=== PATIENT | male | born 1960 | race Caucasian/White ===

== ENCOUNTER 2016-08-02 15:07 | Emergency (ER) | payer OTHER ==
[~2016-08-02] VITALS: Ht 182.9 cm; Wt 100.0 kg
[~2016-08-02 15:07] MED LIST: ALBU0.086 INH; ASPI81TA82 PO; MEDR4PAK3 PO; TAB-TAB; ZITH250T PO
[2016-08-02 15:44] VITALS: PULSE 64; RESP 14; TEMP 98; O2SAT 99
[2016-08-02 15:52] VITALS: BP 138/69; PULSE 68; RESP 18; O2SAT 100
[2016-08-02] MEDS ORDERED: SODIUM CHLOR 0.9% 1000 ML INJ 1,000 ML IV SCH (15:54)
[2016-08-02] MEDS ORDERED: ONDANSETRON HCL 4 MG/2 ML VIAL IVP ONE (16:00)
[2016-08-02] MEDS ORDERED: SODIUM CHLORIDE 0.9% FLUSH 10 ML FLUSH IV FLUSH PRN (16:00)
[2016-08-02] MEDS ORDERED: KETOROLAC TROMETHAMINE 30 MG/ML (IVP) VIAL IVP ONE (16:00)
[2016-08-02] MEDS ORDERED: MORPHINE SULFATE 4 MG/ML INJ IV PUSH ONE ×2 (16:00→18:00)
--- NOTE | 2016-08-02 16:21 | PD ---
HPI Chief Complaint: GI Complaint Time Seen by Provider: 15:47 Travel History International Travel<30 days: No Contact w/Intl Traveler<30days: No Traveled to known affect area: No History of Present Illness HPI The patient is a 56-year-old male who presents emergency department for right flank pain and nausea. The patient states he developed symptoms at lunch time, approximately noon, when he was eating a sandwich. The pain is located over the right upper quadrant and right flank, nonradiating, persistent , and associated with nausea without any vomiting. The patient notes one loose bowel movement, but denies any outright diarrhea or change in bowel habits. The patient denies any fever, chills, or sweats. The patient denies any history nephrolithiasis or gallstones. Symptoms are moderate, there are no alleviating or exacerbating factors. The patient denies any chest pain or shortness of breath. Patient denies any dysuria, frequency, urgency, or hematuria. PFSH Past Medical History Medical History: Denies Significant Hx Past Surgical History Surgical History: No Previous Surgery Social History Alcohol Use: No Tobacco Use: No Substance Use: No Allergies-Medications (Allergen,Severity, Reaction): Coded Allergies: Aspirin (Verified Allergy, Mild, EYES ITCH, 04/30/11) Penicillin (Verified Allergy, Mild, 04/30/11) Reported Meds & Prescriptions Reported Meds & Active Scripts Active Proventil Ud 0.083% (2.5 Mg/3 Ml) (Albuterol Sulfate) 2.5 Mg/3 Ml Inha 2.5 Mg INH Q4 Zithromax Z-Chintan (Azithromycin) 250 Mg Tab 250 Mg PO DIRECTED 5 Days 500 MG (2 TABLETS) PO ON DAY 1, THEN 250 MG (1 TABLET) PO ON DAYS 2 TO 5. Medrol Dosepak (Methylprednisolone) 4 Mg Chintan 4 Mg PO DIRECTED TAKE DIRECTED BEGIN ON 05/01/11 Reported Aspir-81 (Aspirin) 81 Mg Tab 81 Mg PO DAILY Multivitamin (Multivitamins) 1 Tab Tab Review of Systems Except as stated in HPI: all other systems reviewed are Neg General / Constitutional: No: Fever, Chills Cardiovascular: No: Chest Pain or Discomfort Respiratory: No: Shortness of Breath Gastrointestinal: Positive: Nausea, Abdominal Pain, No: Vomiting, Diarrhea Genitourinary: Positive: Flank Pain, No: Urgency, Frequency, Dysuria, Hematuria Musculoskeletal: No: Weakness Physical Exam Narrative GENERAL: Awake, alert, pleasant 56-year-old male who appears his stated age and is in no acute respiratory distress. SKIN: Focused skin assessment reveals slightly clammy skin. HEAD: Atraumatic. Normocephalic. EYES: Pupils equal and round. No scleral icterus. No injection or drainage. ENT: No nasal bleeding or discharge. Mucous membranes pink and moist. NECK: Trachea midline. No JVD. CARDIOVASCULAR: Regular rate and rhythm. No murmur appreciated. RESPIRATORY: No accessory muscle use. Clear to auscultation. Breath sounds equal bilaterally. GASTROINTESTINAL: Abdomen soft, right flank tenderness, minimal right upper quadrant tenderness. Negative Agustin's. Negative McBurney's. Back: No CVA tenderness. MUSCULOSKELETAL: No obvious deformities. No clubbing. No cyanosis. No edema. NEUROLOGICAL: Awake and alert. No obvious cranial nerve deficits. Motor grossly within normal limits. Normal speech. PSYCHIATRIC: Appropriate mood and affect; insight and judgment normal. Data Data Last Documented VS Vital Signs Date Time Temp Pulse Resp B/P Pulse Ox O2 Delivery O2 Flow Rate FiO2 08/02/16 17:36 96 Room Air 08/02/16 17:11 17 08/02/16 16:46 68 151/74 08/02/16 15:44 98.0 Orders Complete Blood Count With Diff (08/02/16 15:54) Comprehensive Metabolic Panel (08/02/16 15:54) Lipase (08/02/16 15:54) Urinalysis - C+S If Indicated (08/02/16 15:54) Ct Abd/Pel W/O Iv Contrast (08/02/16 15:54) Iv Access Insert/Monitor (08/02/16 15:54) Ecg Monitoring (08/02/16 15:54) Oximetry (08/02/16 15:54) Morphine Inj (Morphine Inj) (08/02/16 16:00) Ondansetron Inj (Zofran Inj) (08/02/16 16:00) Sodium Chlor 0.9% 1000 Ml Inj (Ns 1000 M (08/02/16 15:54) Sodium Chloride 0.9% Flush (Ns Flush) (08/02/16 16:00) Electrocardiogram (08/02/16 15:54) Ketorolac Inj (Toradol Inj) (08/02/16 16:00) Troponin I (08/02/16 15:54) Creatine Kinase (Cpk) (08/02/16 15:54) Morphine Inj (Morphine Inj) (08/02/16 18:00) Labs Laboratory Tests Test 08/02/16 08/02/16 15:50 16:50 White Blood Count 14.0 TH/MM3 Red Blood Count 4.98 MIL/MM3 Hemoglobin 15.0 GM/DL Hematocrit 45.4 % Mean Corpuscular Volume 91.0 FL Mean Corpuscular Hemoglobin 30.0 PG Mean Corpuscular Hemoglobin 33.0 % Concent Red Cell Distribution Width 12.9 % Platelet Count 250 TH/MM3 Mean Platelet Volume 9.9 FL Neutrophils (%) (Auto) 86.3 % Lymphocytes (%) (Auto) 6.5 % Monocytes (%) (Auto) 6.2 % Eosinophils (%) (Auto) 0.1 % Basophils (%) (Auto) 0.9 % Neutrophils # (Auto) 12.1 TH/MM3 Lymphocytes # (Auto) 0.9 TH/MM3 Monocytes # (Auto) 0.9 TH/MM3 Eosinophils # (Auto) 0.0 TH/MM3 Basophils # (Auto) 0.1 TH/MM3 CBC Comment DIFF FINAL Differential Comment Sodium Level 139 MEQ/L Potassium Level 3.7 MEQ/L Chloride Level 106 MEQ/L Carbon Dioxide Level 22.0 MEQ/L Anion Gap 11 MEQ/L Blood Urea Nitrogen 17 MG/DL Creatinine 1.61 MG/DL Estimat Glomerular Filtration 45 ML/MIN Rate Random Glucose 129 MG/DL Calcium Level 9.9 MG/DL Total Bilirubin 0.7 MG/DL Aspartate Amino Transf 28 U/L (AST/SGOT) Alanine Aminotransferase 38 U/L (ALT/SGPT) Alkaline Phosphatase 52 U/L Total Creatine Kinase 306 U/L Troponin I LESS THAN 0.02 NG/ML Total Protein 8.3 GM/DL Albumin 4.4 GM/DL Lipase 105 U/L Urine Color YELLOW Urine Turbidity CLEAR Urine pH 8.5 Urine Specific [place] 1.020 Urine Protein 30 mg/dL Urine Glucose (UA) NEG mg/dL Urine Ketones 80 mg/dL Urine Occult Blood MOD Urine Nitrite NEG Urine Bilirubin NEG Urine Urobilinogen LESS THAN 2.0 MG/DL Urine Leukocyte Esterase NEG Urine RBC 157 /hpf Urine WBC 1 /hpf Urine Squamous Epithelial <1 /hpf Cells Urine Hyaline Casts 1 /lpf Urine Mucus FEW /lpf Microscopic Urinalysis Comment CULT NOT INDICATED MDM Medical Decision Making Medical Screen Exam Complete: Yes Emergency Medical Condition: Yes Medical Record Reviewed: Yes Interpretation(s) CT of the abdomen and pelvis reveals very minimal perinephric stranding with a tiny stone at the right ureterovesical junction. There are no residual calculi at either kidney. EKG reveals normal sinus rhythm with a rate of 63. Inverted T-wave in lead 3. Laboratory Tests Test 08/02/16 08/02/16 15:50 16:50 White Blood Count 14.0 TH/MM3 Red Blood Count 4.98 MIL/MM3 Hemoglobin 15.0 GM/DL Hematocrit 45.4 % Mean Corpuscular Volume 91.0 FL Mean Corpuscular Hemoglobin 30.0 PG Mean Corpuscular Hemoglobin 33.0 % Concent Red Cell Distribution Width 12.9 % Platelet Count 250 TH/MM3 Mean Platelet Volume 9.9 FL Neutrophils (%) (Auto) 86.3 % Lymphocytes (%) (Auto) 6.5 % Monocytes (%) (Auto) 6.2 % Eosinophils (%) (Auto) 0.1 % Basophils (%) (Auto) 0.9 % Neutrophils # (Auto) 12.1 TH/MM3 Lymphocytes # (Auto) 0.9 TH/MM3 Monocytes # (Auto) 0.9 TH/MM3 Eosinophils # (Auto) 0.0 TH/MM3 Basophils # (Auto) 0.1 TH/MM3 CBC Comment DIFF FINAL Differential Comment Sodium Level 139 MEQ/L Potassium Level 3.7 MEQ/L Chloride Level 106 MEQ/L Carbon Dioxide Level 22.0 MEQ/L Anion Gap 11 MEQ/L Blood Urea Nitrogen 17 MG/DL Creatinine 1.61 MG/DL Estimat Glomerular Filtration 45 ML/MIN Rate Random Glucose 129 MG/DL Calcium Level 9.9 MG/DL Total Bilirubin 0.7 MG/DL Aspartate Amino Transf 28 U/L (AST/SGOT) Alanine Aminotransferase 38 U/L (ALT/SGPT) Alkaline Phosphatase 52 U/L Total Creatine Kinase 306 U/L Troponin I LESS THAN 0.02 NG/ML Total Protein 8.3 GM/DL Albumin 4.4 GM/DL Lipase 105 U/L Urine Color YELLOW Urine Turbidity CLEAR Urine pH 8.5 Urine Specific [place] 1.020 Urine Protein 30 mg/dL Urine Glucose (UA) NEG mg/dL Urine Ketones 80 mg/dL Urine Occult Blood MOD Urine Nitrite NEG Urine Bilirubin NEG Urine Urobilinogen LESS THAN 2.0 MG/DL Urine Leukocyte Esterase NEG Urine RBC 157 /hpf Urine WBC 1 /hpf Urine Squamous Epithelial <1 /hpf Cells Urine Hyaline Casts 1 /lpf Urine Mucus FEW /lpf Microscopic Urinalysis Comment CULT NOT INDICATED Differential Diagnosis Differential diagnoses includes cholecystitis, nephrolithiasis, pyelonephritis, hydronephrosis, atypical appendicitis, colitis, gastritis, pancreatitis, peptic ulcer disease. Narrative Course IV was established, labs are drawn and sent, and the patient was placed on cardiac telemetry monitoring and continuous pulse oximetry monitoring. The patient was administered Zofran, morphine, Toradol, and IV fluids. CT of the abdomen and pelvis was ordered to evaluate for nephrolithiasis/cholecystitis. UA was sent to lab. CT of the abdomen and pelvis is positive for kidney stone, the patient was reevaluated at 4:45 PM, his pain has significantly improved. Creatinine is mildly elevated 1.61, UA reveals RBCs but no evidence of infection. The patient's pain is significantly improved. The patient will be discharged home on pain medications, anti-inflammatories, antiemetics, and Flomax. The patient is advised to follow-up with urology and return if symptoms worsen or progress. The patient was reevaluated at 5:45 PM, his pain was returning, was a 5/10. Therefore, patient was administered another dose of morphine. The patient will be discharged home on medications, is advised to strain his urine and return if symptoms worsen or progress. Diagnosis Primary Impression: Nephrolithiasis Referrals: Nasim Jean MD call for appointment Patient Instructions: General Instructions Additional Instructions: Please provide the patient a strainer. Medications as directed. Follow-up with your primary physician. Return if symptoms worsen or progress. Med/Other Pt SpecificInfo: Prescription(s) given Scripts Tamsulosin (Flomax)0.4 Mg Cap0.4 Mg PO HS 7 Days Ref 0 Prov:Aden Muniz MD 08/02/16 Ibuprofen 600 Mg [id number] Mg PO Q6H PRN (Pain/Inflammation) #20 TAB Ref 0 Prov:Aden Muniz MD 08/02/16 Hydrocodone-Acetaminophen ([place])5-325 mg Tab1 Tab PO Q6H PRN (PAIN) #20 TAB Ref 0 Prov:Aden Muniz MD 08/02/16 Disposition: 01 DISCHARGE HOME Condition: Stable Aden Muniz MD Aug 02, 2016 16:21
[2016-08-02 16:43] LABS: AUTOMATED NEUTROPHIL # 12.1 TH/MM3 (1.8-7.7); BASOPHIL # 0.1 TH/MM3 (0-0.2); BASOPHIL % 0.9 % (0.0-2.0); EOSINOPHIL % 0.1 % (0.0-4.0); HEMATOCRIT 45.4 % (39.0-51.0); HEMO FLAGS DIFF FINAL; LYMPH % 6.5 % (9.0-44.0); LYMPHOCYTE # 0.9 TH/MM3 (1.0-4.8); MONO % 6.2 % (0.0-8.0); NEUT % 86.3 % (16.0-70.0); PLATELET COUNT 250 TH/MM3 (150-450); RED BLOOD COUNT 4.98 MIL/MM3 (4.50-5.90); RED CELL DISTRIBUTION WIDTH 12.9 % (11.6-17.2)
--- NOTE | 2016-08-02 16:43 | RADRPT ---
EXAM DATE/TIME: 08/02/2016 16:21 [facility] COMPARISON: No previous studies available for comparison. INDICATIONS : Right flank pain. ORAL CONTRAST: No oral contrast ingested. RADIATION DOSE: 8.52 CTDIvol (mGy) ; Combined studies - Abdomen/Pelvis MEDICAL HISTORY : None SURGICAL HISTORY : None. ENCOUNTER: Initial ACUITY: 1 day PAIN SCALE: 4/10 LOCATION: Right flank TECHNIQUE: Volumetric scanning of the abdomen and pelvis was performed. Using automated exposure control and adjustment of the mA and/or kV according to patient size, radiation dose was kept as low as reasonably achievable to obtain optimal diagnostic quality images. FINDINGS: Lung bases are clear. Small pleural lipoma is noted on the left. The liver is free of focal defects. Spleen, pancreas and left kidney are unremarkable. There is mil d perinephric stranding with a tiny stone at the right ureteral vesical junction. Pelvic contents are unremarkable. CONCLUSION: 1. Very minimal perinephric stranding with a tiny stone at the right ureterovesical junction. 2. There are no residual calculi at either kidney. Sky Velázquez MD FACR on August 02, 2016 at 16:35 Board Certified Radiologist. This report was verified electronically.
[2016-08-02 16:46] VITALS: BP 151/74; PULSE 68; RESP 17; O2SAT 96
[2016-08-02 17:03] LABS: ANION GAP 11 MEQ/L (5-15); AST (GOT) 28 U/L (15-37); BLOOD UREA NITROGEN 17 MG/DL (7-18); CHLORIDE 106 MEQ/L (98-107); GLOMERULAR FILTRATION RATE 45 ML/MIN (>89); POTASSIUM 3.7 MEQ/L (3.5-5.1); SODIUM (NA) 139 MEQ/L (136-145)
[2016-08-02 17:08] LABS: BLOOD, URINE MOD (NEG); COMMENT (UR) CULT NOT INDICATED; CULTURE IF INDICATED CULT NOT INDICATED; GLUCOSE,URINE NEG (NEG); HYALINE CAST, URINE 1 /lpf (RARE); KETONE, URINE 80 mg/dL (NEG); MUCUS URINE FEW /lpf (OCC); NITRITE,URINE NEG (NEG); PH, URINE 8.5 (5.0-8.5); SQUAMOUS EPITHELIAL CELL URINE <1 /hpf (0-5); URINE COLOR YELLOW (YELLW/STRAW)
[2016-08-02 17:08] LABS: ALKALINE PHOSPHATASE 52 U/L (45-117); ALT (GPT) 38 U/L (12-78); CREATINE KINASE 306 U/L (39-308); TOTAL BILIRUBIN ADULT 0.7 MG/DL (0.2-1.0)
[2016-08-02 17:11] VITALS: RESP 17
[2016-08-02 17:36] VITALS: O2SAT 96
[2016-08-02] MEDS ORDERED: NORC5TAB PO (17:50)
[2016-08-02] MEDS ORDERED: IBUP-232 PO (17:50)
[2016-08-02] MEDS ORDERED: TAMS5CAP PO (17:50)
--- NOTE | 2016-08-04 21:31 | EKG ---
Date Performed: 08/02/2016 Time Performed: 16:43:03 PTAGE: 56 years EKG: Sinus rhythm MODERATE INTRAVENTRICULAR CONDUCTION DELAY BORDERLINE ECG NO PREVIOUS TRACING DOCTOR: Johan Goodman Interpretating Date/Time 08/04/2016 21:27:43
== END 2016-08-02 18:42 | disposition home or self-care (01) ==
LOC: NEPE 15:07
DX: N20.0 Calculus of kidney (principal); R10.11 Right upper quadrant pain
CPT/HCPCS: 74176; 80053; 81001; 82550; 83690; 84484; 85025; 93005; 96361; 96374; 96375; 96376; 99284; J1885; J2270; J2405; J7030